=== PATIENT | male | born 1950 | race Caucasian/White ===

== ENCOUNTER 2017-03-26 06:13 | Day surgery (SDC) | payer MEDICARE, BC ==
[~2017-03-26 06:13] MED LIST: Lactated Ringers 1,000 ML IV SCH; Lidocaine 1%/Sod Bicarbonate in NS 8.4% 1 ML Syringe PRN; Sodium Chloride 0.9% 10 ML Syringe FLUSH PRN
--- NOTE | 2017-03-26 07:12 | PCM.PREANE ---
Preanesthetic Assessment - Anesthesia/Transfusion/Family Hx Anesthesia History: Prior Anesthesia Without Reaction Family History of Anesthesia Reaction: No Transfusion History: No Prior Transfusion(s) - Review of Systems General: No Symptoms Pulmonary: No Symptoms Cardiovascular: No Symptoms Gastrointestinal: No Symptoms Neurological: No Symptoms Other: Reports: None - Physical Assessment NPO Status Date: 03/25/17 NPO Status Time: 00:00 Pulse: 63 O2 Sat by Pulse Oximetry: 95 Respiratory Rate: 16 Blood Pressure: 141/85 Temperature: 36.8 C Height: 1.78 m Weight: 80 kg ASA Class: 2 Mental Status: Alert & Oriented x3 Dentition: Reports: Normal Dentition Thyro-Mental Finger Breadths: 3 Mouth Opening Finger Breadths: 3 ROM/Head Extension: Full Lungs: Clear to Auscultation, Normal Respiratory Effort Cardiovascular: Regular Rate, Regular Rhythm, No Murmurs - Lab Values: Laboratory Last Values MRSA (PCR) Negative 03/23/17 12:56 - Allergies Allergies/Adverse Reactions: Allergies Allergy/AdvReac Type Severity Reaction Status Date / Time No Known Allergies Allergy Verified 03/23/17 15:45 - Blood Blood Available: No Product(s) Available: None - Anesthesia Plan Pre-Op Medication Ordered: None - Acknowledgements Anesthesia Type Planned: BRYCE Pt an Appropriate Candidate for the Planned Anesthesia: Yes Alternatives and Risks of Anesthesia Discussed w Pt/Guardian: Yes Pt/Guardian Understands and Agrees with Anesthesia Plan: Yes PreAnesthesia Questionnaire HEENT History: Reports: Impaired Vision, Other (See Below) Other HEENT History: GLASSES, HEARING AIDS, DENTURES Cardiovascular History: Reports: None Respiratory History: Reports: None Gastrointestinal History: Reports: GERD Genitourinary History: Reports: None SPONGE FISHERMAN History: Reports: None Musculoskeletal History: Reports: Gout Neurological History: Reports: None Endocrine/Metabolic History: Reports: None Hematologic History: Reports: None Immunologic History: Reports: None Oncologic (Cancer) History: Reports: None Dermatologic History: Reports: None - Past Surgical History Head Surgeries/Procedures: Reports: None Cardiovascular Surgical History: Reports: None Respiratory Surgical History: Reports: None GI Surgical History: Reports: Colonoscopy, Hernia, Inguinal Female Surgical History: Reports: None Male Surgical History: Reports: None Endocrine Surgical History: Reports: None Neurological Surgical History: Reports: None Musculoskeletal Surgical History: Reports: None Oncologic Surgical History: Reports: None Dermatological Surgical History: Reports: None - SUBSTANCE USE Recreational Drug Use History: No - HOME MEDS Home Medications: Home Meds Acetaminophen/HYDROcodone [[place] 325-5 MG] 1 - 2 tab PO Q6H PRN #40 tablet 03/26 [Rx] - CURRENT (IN HOUSE) MEDS Current Meds: Current Medications Lactated Ringer's (Ringers, Lactated) 1,000 mls @ 125 mls/hr IV ASDIRECTED JAXON Stop: 03/26/17 23:00 Last Admin: 03/26/17 06:50 Dose: 125 mls/hr Lidocaine/Sodium Bicarbonate (Buffered Lidocaine 1% In Ns 8.4%) 0.25 ml .XX ONETIME PRN PRN Reason: Prior to IV Start Stop: 03/26/17 18:00 Sodium Chloride (Saline Flush) 10 ml FLUSH ASDIRECTED PRN PRN Reason: Keep Vein Open Stop: 03/26/17 18:00
[2017-03-26] MEDS ORDERED: Bupivacaine 0.25% 10 ML SDV ONE (07:29)
[2017-03-26] MEDS ORDERED: Propofol 200 MG/20 ML SDV ONE (07:33)
[2017-03-26] MEDS ORDERED: fentaNYL 100 MCG/2 ML SDV ONE (07:33)
[2017-03-26] MEDS ORDERED: Midazolam 1 MG/ML 2 ML SDV ONE (07:34)
[2017-03-26] MEDS ORDERED: ceFAZolin 1 GM Vial ONE (07:36)
[2017-03-26] MEDS ORDERED: Sodium Bicarbonate 8.4% 50 MEQ/50 ML SDV ONE (07:41)
[2017-03-26] MEDS ORDERED: Lidocaine 0.5% 50 ML SDV ONE (07:41)
[2017-03-26] MEDS ORDERED: Lidocaine 1% 4 ML ONE (07:42)
[2017-03-26] MEDS ORDERED: Acetaminophen/HYDROcodone 325-5 MG Tab PO ONE (09:30)
[2017-03-26 09:36] VITALS: BP 126/81
--- NOTE | 2017-03-26 10:33 | CR ---
Fifth finger: Six fluoroscopic spot views were obtained of the fifth finger. Study obtained utilizing C-arm device. Study shows 2 fixation pins within the proximal phalanx. Fluoroscopy time given as 35.8 seconds. Impression: 1. Operative study. Diagnostic code #2
--- NOTE | 2017-03-28 13:56 | PCM.OPNOTE ---
- General Post-Op/Procedure Note Date of Surgery/Procedure: 03/22/17 Operative Procedure(s): closed reduction with percutaneous pinning of right small finger proximal phalanx fracture Pre Op Diagnosis: displaced right small finger proximal phalanx fracture Post-Op Diagnosis: Same Anesthesia Technique: Regional Block ([place]) Primary Surgeon: Jin Jalloh Anesthesia Provider: Cayden Cleary Scrummaster: Junie Bautista EBL in mLs: 0 Complications: None Condition: Good
--- NOTE | 2017-03-28 15:31 | OR ---
DATE OF OPERATION: 03/26/2017 SURGEON: Jin Jalloh MD OPERATION PERFORMED: Closed reduction with percutaneous pinning of right small finger proximal phalanx fracture. PREOPERATIVE DIAGNOSIS: Displaced right small finger proximal phalanx base fracture. POSTOPERATIVE DIAGNOSIS: Displaced right small finger proximal phalanx base fracture. ANESTHESIA: Regional [place] block. ANESTHESIA PROVIDER: Cayden Cleary CRNA AMUSEMENT EQUIPMENT OPERATOR: Junie Bautista PA-C. ESTIMATED BLOOD LOSS: Less than 5 mL. COMPLICATIONS: None. CONDITION: Stable. DESCRIPTION OF PROCEDURE: The patient was identified in the preop holding area. Proper site was marked and identified by the surgeon. The patient was taken back to the operating theater, where after adequate anesthesia, the patient's right upper extremity was sterilely prepped and draped in the usual sterile fashion. OR-wide time-out was performed. The patient received 2 gams of IV Ancef. At this time, two 0.039 K-wires were then placed in a retrograde fashion in the proximal phalanx of the right small finger. After closed reduction was performed using C-arm fluoroscopy, making sure the extension deformity was corrected, there was noted to be adequate anatomic reduction in both AP and lateral views. At this time, they were placed retrograde across the fracture site. The fracture site was found to have adequate stability. The pins were then bent and cut. The patient was placed in an ulnar gutter splint after Xeroform was applied. The patient tolerated the procedure well and was sent to PACU in a stable condition. MMODAL /[id number]
== END 2017-03-26 10:23 | disposition home or self-care (01) ==
LOC: JD.SDS 06:13
PROVIDERS: ATTEND Orthopaedic Surgery
DX: S62.616A Displaced fracture of proximal phalanx of right little finger, initial encounter for closed fracture (principal); K21.9 Gastro-esophageal reflux disease without esophagitis; Z98.890 Other specified postprocedural states; Z72.0 Tobacco use
CPT/HCPCS: 26727; 76000; 87641; A9270; C1713; J0690; J2250; J3010; J7120; 01820; J2704

== ENCOUNTER 2022-05-23 09:25 | Emergency (ER) | payer MEDICARE, BC ==
[2022-05-23 12:52] VITALS: BP 134/91; PULSE 68
== END 2022-05-23 12:35 | disposition home or self-care (01) ==
LOC: JD.ED 09:25
DX: R33.9 Retention of urine, unspecified (principal); Z79.899 Other long term (current) drug therapy; Z86.16 Personal history of COVID-19
CPT/HCPCS: 51702; 51798; 99283